=== PATIENT | female | born 1965 | race Caucasian/White ===

== ENCOUNTER 2022-11-06 16:47 | Emergency (ER) | payer MEDICAID ==
[~2022-11-06] VITALS: Ht 157.5 cm; Wt 73.9 kg
[2022-11-06 21:12] VITALS: BP 125/70
== END 2022-11-06 21:10 | disposition home or self-care (01) ==
LOC: ED 16:47
DX: T67.5XXA Heat exhaustion, unspecified, initial encounter (principal); E11.9 Type 2 diabetes mellitus without complications; X58.XXXA Exposure to other specified factors, initial encounter
CPT/HCPCS: 36415; 80053; 81003; 83735; 85025; 96374; 99283-25; J2405; J7121

== ENCOUNTER 2024-09-06 10:40 | Emergency (ER) | payer MEDICARE, OTHER ==
[~2024-09-06] VITALS: Ht 157.5 cm; Wt 76.8 kg
[2024-09-06] MEDS ORDERED: LEVOTHYROXINE100 MCG PO (11:09)
[2024-09-06] MEDS ORDERED: METFORMIN HCL500 M1 PO (11:10)
[2024-09-06] MEDS ORDERED: ATORVASTATIN CA10 MG PO (11:10)
[2024-09-06 11:30] LABS: BILIRUBIN, URINE POSITIVE (negative); BLOOD/HGB, URINE TRACE-I (Negative); KETONE, URINE >=80 (Negative); LEUK ESTERASE, URINE NEGATIVE (negative); NITRITE, URINE NEGATIVE (negative)
[2024-09-06] MEDS ORDERED: MORPHINE SULFATE 4 MG/ML VIAL IV ONE (11:30)
[2024-09-06] MEDS ORDERED: ondansetron HCL 4 MG/2 ML VIAL IV ONE (11:30)
[2024-09-06] MEDS ORDERED: SODIUM CHLORIDE 0.9% 1,000 ML IV ONE (11:30)
[2024-09-06 11:36] LABS: BACTERIA, URINE 3+ /hpf (negative); CASTS, URINE NONE SEEN \\lpf; CRYSTALS, URINE NONE SEEN (0-1+); RED BLOOD CELLS, URINE 0-1 /hpf (0-5)
[2024-09-06 11:37] LABS: COLLECTION TYPE, URINE CLEAN CATCH; REFLEX CULTURE, URINE No (No)
[2024-09-06 11:48] LABS: BASOPHILS 0.4 % (0-2); EOSINOPHILS 1.8 % (0-6); LYMPHOCYTES 30.6 % (24-44); MCH 30.3 (27-36); MCHC 34.1 g/dl (30-36); MONOCYTES 8.3 % (0-12); NEUTROPHILS 58.9 % (39-80); PLATELET COUNT 314 K/uL (140-440); RBC 4.28 M/ul (4.3-5.7); RDW 14.8 (10.5-15.0)
[2024-09-06 12:05] LABS: ALBUMIN 3.6 g/dL (3.4-5.0); ALBUMIN/GLOBULIN RATIO 1.13 (1.1-2.4); ANION GAP 19.4 (7-21); BILIRUBIN, TOTAL 0.9 mg/dL (0.2-1.0); BUN/CREATININE RATIO 9.21 (6.0-28.6); CALCIUM 8.8 mg/dL (8.5-10.1); CREATININE, SERUM 0.76 mg/dL (0.55-1.02); POTASSIUM 3.4 mmol/L (3.5-5.1); PROTEIN, TOTAL 6.8 g/dL (6.4-8.2)
[2024-09-06] MEDS ORDERED: ONDANSETRON HCL4 MG PO (14:53)
[2024-09-06] MEDS ORDERED: PRILOSEC OTC20 MG PO (14:53)
[2024-09-06 15:19] VITALS: BP 121/81
--- NOTE | 2024-09-07 19:08 | EKG ---
[facility] [address] [place], [place] [address] Signed Normal sinus rhythm Normal ECG No previous ECGs available Confirmed by Elieser Fritz MD ([id number]) on 09/07/2024 7:07:58 PM Electronically Signed By: ELIESER FRITZ MD 09/07/24 190 PATIENT NAME: TERESITA BROWNE ANN Electrocardiogram DATE OF : 65 PHYSICIAN: ELIESER FRITZ MD REPORT #: [id number] REPORT IS CONFIDENTIAL AND NOT TO BE RELEASED WITHOUT AUTHORIZATION
== END 2024-09-06 15:20 | disposition home or self-care (01) ==
LOC: ED 10:40
PROVIDERS: Emergency Medicine
DX: K02.9 Dental caries, unspecified (principal); R51.9 Headache, unspecified; E11.9 Type 2 diabetes mellitus without complications; E07.9 Disorder of thyroid, unspecified; Z79.890 Hormone replacement therapy; Z79.84 Long term (current) use of oral hypoglycemic drugs; Z79.899 Other long term (current) drug therapy
CPT/HCPCS: 36415; 70487; 74177; 80053; 81001; 83690; 84484; 85025; 93005; 93010; 99284-25; J2270; J2405; J7030; Q9967

== ENCOUNTER 2024-09-25 08:41 | Emergency (ER) | payer MEDICARE, OTHER ==
[~2024-09-25] VITALS: Ht 157.5 cm; Wt 73.4 kg
[~2024-09-25 08:41] MED LIST: ATORVASTATIN CA10 MG PO; LEVOTHYROXINE100 MCG PO; METFORMIN HCL500 M1 PO; ONDANSETRON HCL4 MG PO; ONDANSETRON ODT8 MG PO; PRILOSEC OTC20 MG PO
--- OUTSIDE RECORDS SUMMARY | 2024-09-25 08:47 | XMS ---
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 Evel[facility] VISIT COUNT (12 MO.) 3 [facility] TOTAL 4 NOTE: Visits indicate total known visits. ED/UCC VISIT TRACKING (12 MO.) 09/25/2024 08:42 [facility] [place] TYPE: Emergency COMPLAINT: - WEAKNESS 09/16/2024 16:31 [facility] [place] TYPE: Emergency COMPLAINT: - VOMITING DIAGNOSES: - Disorder of thyroid, unspecified - Hormone replacement therapy - snf (current) use of oral hypoglycemic drugs - Other halfway (current) drug therapy - Other specified personal risk factors, not elsewhere classified - Type 2 diabetes mellitus without complications - Vomiting, unspecified 09/06/2024 10:[address] 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
[2024-09-25] MEDS ORDERED: GABAPENTIN600 MG PO (08:50)
[2024-09-25] MEDS ORDERED: MIRTAZAPINE7.5 MG PO (08:51)
[2024-09-25 09:07] LABS: BASOPHILS 0.7 % (0-2); EOSINOPHILS 3.5 % (0-6); HEMOGLOBIN 13.1 g/dL (12.0-18.0); MCH 30.3 (27-36); MCHC 34.5 g/dl (30-36); MCV 87.9 fl (81-99); MONOCYTES 10.2 % (0-12); NEUTROPHILS 63.6 % (39-80); PLATELET COUNT 223 K/uL (140-440); RBC 4.33 M/ul (4.3-5.7); RDW 15.3 (10.5-15.0)
[2024-09-25] MEDS ORDERED: SODIUM CHLORIDE 0.9% 1,000 ML IV ONE (09:15)
[2024-09-25 09:32] LABS: ALBUMIN 2.9 g/dL (3.4-5.0); ALBUMIN/GLOBULIN RATIO 0.78 (1.1-2.4); ANION GAP 11.6 (7-21); BILIRUBIN, TOTAL 0.9 mg/dL (0.2-1.0); BUN/CREATININE RATIO 7.5 (6.0-28.6); CALCIUM 7.4 mg/dL (8.5-10.1); CREATININE, SERUM 1.2 mg/dL (0.55-1.02); POTASSIUM 2.6 mmol/L (3.5-5.1); PROTEIN, TOTAL 6.6 g/dL (6.4-8.2); TSH, 3RD GENERATION 0.007 uIU/mL (0.358-3.740)
[2024-09-25] MEDS ORDERED: POTASSIUM CHLORIDE 20 MEQ/15 ML CUP PO ONE (10:30)
[2024-09-25] MEDS ORDERED: POTASSIUM CHLORIDE 10 MEQ/100 ML BAG IV SCH (10:30)
[2024-09-25] MEDS ORDERED: MAGNESIUM SULFATE 2 GM/50 ML BAG IV ONE (10:45)
[2024-09-25 12:37] LABS: BILIRUBIN, URINE NEGATIVE (negative); BLOOD/HGB, URINE NEGATIVE (Negative); KETONE, URINE NEGATIVE (Negative); LEUK ESTERASE, URINE NEGATIVE (negative); NITRITE, URINE NEGATIVE (negative); PH, URINE 6.5 (5-7)
[2024-09-25 12:41] LABS: AMPHETAMINES, UR NEGATIVE (NEGATIVE); BARBITURATES, UR NEGATIVE (NEGATIVE); BENZODIAZEPINES, UR NEGATIVE (NEGATIVE); COCAINE, UR NEGATIVE (NEGATIVE); MARIJUANA (THC), UR NEGATIVE (NEGATIVE); MDMA, UR NEGATIVE (NEGATIVE); METHADONE, UR NEGATIVE (NEGATIVE); METHAMPHETAMINE, UR NEGATIVE (NEGATIVE); OPIATES, UR NEGATIVE (NEGATIVE); OXYCODONE, UR NEGATIVE (NEGATIVE); PHENCYCLIDINE, UR NEGATIVE (NEGATIVE); TRICYCLIC ANTIDEPRESSANT, UR NEGATIVE (NEGATIVE)
[2024-09-25 12:42] LABS: BUPRENORPHINE,UR NEGATIVE (NEGATIVE)
[2024-09-25] MEDS ORDERED: TIZANIDINE HCL2 MG PO (12:59)
[2024-09-25] MEDS ORDERED: OMEPRAZOLE20 MG PO (12:59)
[2024-09-25 14:18] LABS: ANION GAP 8.8 (7-21); BUN/CREATININE RATIO 8.33 (6.0-28.6); CREATININE, SERUM 0.72 mg/dL (0.55-1.02); POTASSIUM 3.8 mmol/L (3.5-5.1)
[2024-09-25] MEDS ORDERED: POTASSIUM CHLO20 ME2 PO (14:37)
[2024-09-25] MEDS ORDERED: ONDANSETRON ODT4 MG PO (14:37)
[2024-09-25] MEDS ORDERED: MAGNESIUM400 M1 PO (14:37)
[2024-09-25] MEDS ORDERED: SYNTHROID75 MCG PO (14:37)
[2024-09-25 14:52] VITALS: BP 113/74
--- NOTE | 2024-09-25 22:21 | EKG ---
[facility] [address] [facility] [place] [address] Signed Normal sinus rhythm Nonspecific ST abnormality Abnormal ECG When compared with ECG of 06-SEP-2024 14:05, No significant change was found Confirmed by Stella Heller MD () on 09/25/2024 10:21:37 PM Electronically Signed By: STELLA HELLER MD 09/25/242220 PATIENT NAME: TERESITA BROWNE ANN Electrocardiogram DATE OF : 65 PHYSICIAN: STELLA HELLER MD REPORT #: [id number] REPORT IS CONFIDENTIAL AND NOT TO BE RELEASED WITHOUT AUTHORIZATION
== END 2024-09-25 14:45 | disposition home or self-care (01) ==
LOC: ED 08:41
PROVIDERS: Emergency Medicine
DX: E87.6 Hypokalemia (principal); E05.90 Thyrotoxicosis, unspecified without thyrotoxic crisis or storm; E83.42 Hypomagnesemia; E11.9 Type 2 diabetes mellitus without complications
CPT/HCPCS: 36415; 70450; 80048; 80053; 80307; 81003; 83735; 84439; 84443; 85025; 93005; 93010; 96361; 96365; 96375; 96376; 99284; A9270; J3475; J3480; J7030

== ENCOUNTER 2025-04-05 08:47 | Emergency (ER) | payer MEDICARE, OTHER ==
[~2025-04-05] VITALS: Ht 157.5 cm; Wt 77.4 kg
--- OUTSIDE RECORDS SUMMARY | ~2025-04-05 | XMS | Continuity of Care Document ---
Demographics + + + | Address | [address] | | | [place] [address] | + + + | Preferred Language | Unknown | + + + | Marital Status | | + + + | Moravian Affiliation | Unknown | + + + | Race | White | + + + | Ethnic Group | Not or | + + + Author + + + | Author | [place] | + + + | Organization | [place] | + + + | Address | [address] | | | [place] [address] | + + + | Phone | | + + + Care Team Providers + + + + | Care Director Epidemiology Name | Role | Phone | + + + + Unavailable | Unavailable | + + + + Unavailable | Unavailable | + + + + Allergies No information. Encounters No information. Functional Status No information. Immunizations No information. Medications + + + + | date | description | facility | + + + + | (no date) | OMEPRAZOLE | [facility] [place] | | | | [facility] | + + + + | (no date) | AMOXICILLIN | [facility] [place] | | | | [facility] | + + + + | (no date) | GABAPENTIN | [facility] [place] | | | | [facility] | + + + + | 2025-01-12 00:00 | ONDANSETRON | [facility] [place] | | | | [facility] | + + + + | (no date) | TIZANIDINE HCL | [facility] [place] | | | | [facility] | + + + + | (no date) | MIRTAZAPINE | [facility] [place] | | | | [facility] | + + + + | (no date) | ATORVASTATIN CALCIUM | [facility] | | | | [facility] | + + + + | 2025-01-12 00:00 | HYDROCODONE | [facility] [place] | | | BIT/ACETAMINOPHEN | [facility] | + + + + | (no date) | METFORMIN HCL | [facility] | | | | [facility] | + + + + | (no date) | LEVOTHYROXINE SODIUM | [facility] | | | | [facility] | + + + + Problems + + + + | date | description | facility | + + + + | 2025-01-12 00:00 | Toothache | [facility] [place] | | | | [facility] | + + + + Procedures No information. Results/Labs No information. Social History + + + + | date | description | facility | + + + + | (no date) | Unknown if ever smoked | [facility] [place] | | | | [facility] | + + + + Vital Signs + + + +---------+ | date | measurement | value | units | + + + +---------+ | 2025-01-12 00:00 | BMI | 39.4 | kg/m2 | + + + +---------+ | 2025-01-12 00:00 | BP_diastolic | 77 | mmHg | + + + +---------+ | 2025-01-12 00:00 | BP_systolic | 118 | mmHg | + + + +---------+ | 2025-01-12 00:00 | heart_rate | 78 | /min | + + + +---------+ | 2025-01-12 00:00 | height_metric | 157.48 | cm | + + + +---------+ | 2025-01-12 00:00 | height_standard | 62 | in | + + + +---------+ | 2025-01-12 00:00 | o2_saturation | 96 | % | + + + +---------+ | 2025-01-12 00:00 | respiration_rate | 14 | /min | + + + +---------+ | 2025-01-12 00:00 | temperature_metric | 36.56 | C | | | | | | + + + +---------+ | 2025-01-12 00:00 | | 97.8 | F | | | temperature_standar | | | | | d | | | + + + +---------+ | 2025-01-12 00:00 | weight_metric | 97.7 | kg | + + + +---------+ | 2025-01-12 00:00 | weight_standard | 215.39 | lb | + + + +---------+"
[~2025-04-05 08:47] MED LIST changes: +AMOXICILLIN500 MG PO; +GABAPENTIN600 MG PO; +HYDROCODON-ACE1 EA10 PO; +MAGNESIUM400 M1 PO; +MIRTAZAPINE7.5 MG PO; +OMEPRAZOLE20 MG PO; +ONDANSETRON ODT4 MG PO; +POTASSIUM CHLO20 ME2 PO; +SYNTHROID75 MCG PO; +TIZANIDINE HCL2 MG PO
--- OUTSIDE RECORDS SUMMARY | 2025-04-05 08:54 | XMS ---
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 E.D. VISIT COUNT (12 MO.) 6 [facility] TOTAL 6 NOTE: Visits indicate total known visits. ED/UCC VISIT TRACKING (12 MO.) 04/05/2025 08:48 [facility] [place] TYPE: Emergency COMPLAINT: - FALL 01/12/2025 11:22 [facility] [place] TYPE: Emergency COMPLAINT: - DENTAL PROBLEMS DIAGNOSES: - Headache, unspecified - Other detention (current) drug therapy - Other specified disorders of teeth and supporting structures - Type 2 diabetes mellitus without complications 10/24/2024 11:11 [facility] [place] TYPE: Emergency COMPLAINT: - MEDICATION REFILL 09/25/2024 08:42 [facility] [place] TYPE: Emergency COMPLAINT: - WEAKNESS DIAGNOSES: - Dizziness and giddiness - Hypokalemia - Hypomagnesemia - Thyrotoxicosis, unspecified without thyrotoxic crisis or storm - Type 2 diabetes mellitus without complications 09/16/2024 16:31 [facility] [place] TYPE: Emergency COMPLAINT: - VOMITING DIAGNOSES: - Disorder of thyroid, unspecified - Hormone replacement therapy - FPC (current) use of oral hypoglycemic drugs - Other detention (current) drug therapy - Other specified personal risk factors, not elsewhere classified - Type 2 diabetes mellitus without complications - Vomiting, unspecified 09/06/2024 10:[address] 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
[2025-04-05] MEDS ORDERED: SODIUM CHLORIDE 0.9% 1,000 ML IV PRN (12:00)
[2025-04-05 12:02] LABS: BLOOD/HGB, URINE NEGATIVE (Negative); KETONE, URINE NEGATIVE (Negative); LEUK ESTERASE, URINE NEGATIVE (negative); NITRITE, URINE NEGATIVE (negative)
[2025-04-05 12:03] LABS: BASOPHILS 0.3 % (0.1-1.2); EOSINOPHILS 1.8 % (0.7-5.8); LYMPHOCYTES 8.9 % (19.3-51.7); MCH 29.8 PG (25.6-32.2); MCHC 32.5 g/dL (32.2-35.5); MCV 91.7 fL (79.4-94.8); MONOCYTES 5.3 % (4.7-12.5); NEUTROPHILS 83.4 % (34.0-71.1); RBC 3.15 M/uL (3.93-5.22)
[2025-04-05 12:18] LABS: ALT (SGPT) 27.0 U/L (14-59); AST (SGOT) 35.0 U/L (15-37); GLOMERULAR FILTRATION RATE,EST 52.0 mL/min (>60); PROTEIN, TOTAL 6.8 g/dL (6.4-8.2); UREA NITROGEN 15.0 mg/dL (7-18)
[2025-04-05 15:23] VITALS: BP 106/90
--- NOTE | 2025-04-06 15:16 | EKG ---
[facility] [address] [place], [place] [address] Signed Normal sinus rhythm Normal ECG When compared with ECG of 25-SEP-2024 09:08, No significant change was found Confirmed by PAM THOMPSON MD ([id number]) on 04/06/2025 3:16:24 PM Electronically Signed By: PAM THOMPSON 04/06/25 1516 PATIENT NAME: TERESITA BROWNE ANN Electrocardiogram DATE OF : 65 PHYSICIAN: PAM THOMPSON REPORT #: [id number] REPORT IS CONFIDENTIAL AND NOT TO BE RELEASED WITHOUT AUTHORIZATION
== END 2025-04-05 15:58 | disposition home or self-care (01) ==
LOC: ED 08:47
PROVIDERS: Emergency Medicine
DX: S00.01XA Abrasion of scalp, initial encounter (principal); W18.30XA Fall on same level, unspecified, initial encounter; Z79.899 Other long term (current) drug therapy
CPT/HCPCS: 36415; 51701; 70450; 72125; 80053; 81003; 85025; 93005; 93010; 96360; 96361; 99284-25; J7030